=== PATIENT | male | born 1975 | race Caucasian/White ===

== ENCOUNTER → 2025-03-09 08:22 | Outpatient (REF) | payer BC, SELFPAY | LOC: RCS 08:22 | PROVIDERS: ATTENDING PHYSICIAN Internal Medicine Cardiovascular Disease; FAMILY PHYSICIAN Family Medicine | DX: I77.810 Thoracic aortic ectasia (principal) | CPT/HCPCS: 93306 ==

== ENCOUNTER 2025-08-07 22:44 | Emergency (ER) | payer BC, SELFPAY ==
[2025-08-07 22:48] VITALS: BP 164/103
[2025-08-07 22:58] VITALS: BMI 26.3
--- NOTE | 2025-08-07 22:58 | EDRN ---
Pt says he started with kidney stone pain last night and got worse throughout today. Pt with decreased urination. Pt usually drinks beers when his pain gets worse - around 1929 pt drank 2 12 oz beers with little relief. Pt took nighttime
medications at 2114 - pt too 3 advil PM also. Pain nonstop now in R side/back wrapping around to R lower abdomen. Pt has a little nausea, no vomiting. No nausea now - pt says when he gets a little nauseous he usually burps and it is gone. No
fever/cough, had chills.
[2025-08-07 23:36] LABS: Hematocrit 33.8 % (39.0-52.0); Hemoglobin 12.1 g/dL (13.0-18.0); Mean Corp Hgb Conc. 35.8 g/dL (33.0-37.0); Mean Corpuscular Volume 86.4 fL (80.0-94.0); Platelet Count 265 10^3/uL (130-400); Red Cell Dist. Width 12.8 % (11.5-14.5)
--- NOTE | 2025-08-07 23:41 | ED.GENMED ---
History of Present Illness
General
Chief Complaint: Flank Pain
Source: patient
Exam Limitations: none
Time Seen by Provider: 08/07/25 23:02
Nursing documentation reviewed up to this point in time: agreed with
History of Present Illness
History of Present Illness:
Patient with history of kidney stones, presents to ED secondary to recurrent right mid back/flank pain, radiating to the front, with nausea sensation since last night. Denies fever or chills. Denies vomiting. Denies trauma. Patient has had also
difficulty urinating since this afternoon. Patient has taken Advil, prior to arrival, with mild relief in symptoms.
Past History
Past History
ED Past Medical History: Arrthythmia (Atrial fib), Asthma (? Seasonal), GERD, HTN and Other (Kidney stones)
ED Past Surgical History: Cardiac (Pacemaker insertion) and Cholecystectomy; Negative Appendectomy, Bowel resection or
Social History
Tobacco: Non-smoker
Alcohol: None
Drug: None
Personal:
Living: with family
Employment: Employed
Family History
Family History: Hypertension
Review of Systems
Review of Systems
Allergies reviewed?: Yes
All Other Systems: ROS reviewed and negative except as documented in HPI and ROS
Constitutional: Reports no symptoms; Denies fever or chills
ABD/GI: Reports nausea; Denies vomiting
: Reports flank pain
Musculoskeletal: Reports back pain
Skin: Reports no symptoms
Neurological: Reports no symptoms
Phy Exam
Physical Exam
Physical Exam:
Physical Exam
General: mild painful distress, not acutely ill. afebrile
Head: nc/at. eomi
Neck: supple. normal range of motion
Abdomen: normal bowel sounds. not tender.
Neuro: alert and oriented x 3. no focal neurological deficits
Skin: no rash
Psychiatric: well kept. interactive and cooperative
Extremities: no edema. no calf tenderness.
Course
Orders/Labs/Results
Orders:
Orders
08/07/25 23:09
Bladder Scan- Treatment ONCE
08/07/25 23:11
CT Abd/pel Without Iv Or Oral Urgent
Comment:
Reason For Exam: right flank pain
08/07/25 23:27
Basic Metabolic Panel Urgent
Complete Blood Count/No Diff Urgent
Abnormal Lab Results
08/07/25
23:27
RBC 3.91 L 10^6/uL
(4.70-6.10)
Hgb 12.1 L g/dL
(13.0-18.0)
Hct 33.8 L %
(39.0-52.0)
Glucose 182 H mg/dl
(70-99)
08/07/25 23:27
08/07/25 23:27
Vital Signs
Initial and Last Documented VS:
Initial Vital Signs
Temp Pulse Resp BP Pulse Ox
98.3 F 74 18 164/103 98
08/07/25 22:48 08/07/25 22:48 08/07/25 22:48 08/07/25 22:48 08/07/25 22:48
Last Documented Vital Signs
Temp Pulse Resp BP Pulse Ox
98.3 F 64 14 126/87 97
08/07/25 22:48 08/08/25 00:38 08/08/25 00:38 08/08/25 00:38 08/08/25 00:38
MDM/Problems Addressed
MDM/Problems Addressed:
History, exam, and CT scan consistent with renal colic. Patient remains pain-free after having taken Motrin at home prior to arrival. Pt will be discharged home in stable condition, to the care of his with urine strainer with recommendation
for urology f/u as outpatient
*Pulse Oximetry
SaO2: 98
Oxygen Mode of Delivery: Room air
Patient hypoxic: no
*Critical Care Note
Total Time (30-74mins, 75-104mins- exclusive of procedures): Not Applicable
ED Attending Note
-
Portions of this chart may have been created with voice recognition software.� Occasional wrong word or��sound alike� substitutions may have occurred due to the inherent limitations of voice recognition software.
Discharge Plan
Departure
Patient Disposition: Home (Routine Discharge)
Date of Disposition: 08/08/25
Time of Disposition: 00:46
Patient with high blood pressure during this ER visit?: Yes
Condition: Good
Discharge Problem:
Renal colic
Instructions: Renal Colic (DC), How to Strain Your Urine
Prescriptions:
New
oxycodone-acetaminophen [Percocet] 5-325 mg Tablet
1 tab PO Q6HPRN PRN (Reason: pain) Qty: 8 0RF
tamsulosin [Flomax] 0.4 mg Capsule
0.4 mg PO DAILY Qty: 7 0RF
ondansetron 4 mg Tablet,Disintegrating
4 mg PO TIDPRN PRN (Reason: nausea/vomiting) Qty: 12 0RF
No Action
fluticasone propionate 1 SPRAY spray,suspension
50 spray intranasal HS
Patient Comments:
50MCG NASAL SPRAY
loratadine 10 MG tablet
10 mg PO DAILY
vitamin B complex-folic acid [Super B Maxi Complex] 0.4 MG tablet
1 tab PO HS
Men's Daily Formula 1 EACH tablet
1 tab PO HS
cholecalciferol (vitamin D3) 2,000 UNITS tablet
2,000 units PO BID
aspirin [Dara Low Dose Aspirin] 81 MG tablet,delayed release (DR/EC)
81 mg PO HS
propafenone 150 mg Tablet
600 mg PO PRN PRN (Reason: pill in pocket)
levalbuterol tartrate [Xopenex HFA] 45 mcg/actuation Hfa Aerosol Inhaler
2 inh INHALATION Q6H PRN (Reason: sob)
ascorbic acid (vitamin C) [Vitamin C] 1,000 mg Tablet
1 g PO BID
triamterene-hydrochlorothiazid 37.5-25 mg Capsule
1 cap PO HS
melatonin 10 mg Tablet
10 mg PO HS PRN (Reason: sleep)
carvedilol 25 MG tablet
25 mg PO BID Qty: 0 0RF
Wegovy 2.4 mg/0.75 mL Pen Injector
2.4 mg SC MO
Referrals:
Tyrone Salomon MD [Active, Urology]
Davonte Charles DO [Family Provider, Family Practice]
Activity Restrictions/Additional Instructions:
As discussed, please follow-up with your urologist for reevaluation. Please consider return to ED with worsening symptoms, i.e. fever/inability to urinate/worsening pain. Your prescriptions have been sent electronically to [facility] pharmacy in [place].
Interventions
Interventions:
*Risk Screen - Suicide Last Done: 08/07/25 22:48
*General Assessment Last Done: 08/07/25 22:48
*Neglect/Abuse Screening Last Done: 08/07/25 22:48
*ED- Fall Risk Assessment Last Done: 08/07/25 22:48
*ED COVID-19 Vaccine History Last Done: 08/07/25 22:48
*ED Influenza Vaccine History Last Done: 08/07/25 22:48
*Nursing Disposition Last Done: 08/08/25 00:54
DG-Mhcwoh-Bmdgvzfxxt Assessment Last Done: 08/07/25 23:05
ED-Male Genitourinary Assessment Last Done: 08/07/25 23:05
Discharge Date and Time
Discharge Date/Time: 08/08/25 00:54
Print Language: SPANISH
[2025-08-08 00:01] LABS: Blood Urea Nitrogen 20 mg/dl (9-20); Calcium 9.3 mg/dl (8.4-10.2); Carbon Dioxide 29 mmol/L (22-30); Chloride 104 mmol/L (98-107); Estimated Creatinine Clearance 84 ml/min; Glucose 182 mg/dl (70-99); Potassium 3.6 mmol/L (3.5-5.1); Sodium 138 mmol/L (135-145); eGFR > 60.00
[2025-08-08 00:38] VITALS: BP 126/87
== END 2025-08-08 00:54 | disposition home or self-care (01) ==
LOC: EMR 22:44
PROVIDERS: EMERGENCY PHYSICIAN Emergency Medicine; FAMILY PHYSICIAN Family Medicine
DX: N20.2 Calculus of kidney with calculus of ureter (principal); I10 Essential (primary) hypertension; Z90.49 Acquired absence of other specified parts of digestive tract; Z95.0 Presence of cardiac pacemaker
CPT/HCPCS: 99284; 74176; 80048; 85027